=== PATIENT | female | born 1960 | race Caucasian/White ===

== ENCOUNTER 2019-09-10 18:25 | Inpatient (IN) | payer OTHER ==
[~2019-09-10] VITALS: Ht 160 cm; Wt 101.6 kg
[2019-09-10 18:31] VITALS: BP 152/86
[2019-09-10] MEDS ORDERED: OMEPRAZOLE 20 M20 M1 PO (18:42)
[2019-09-10] MEDS ORDERED: AZO PO (18:42)
[2019-09-10] MEDS ORDERED: COZAAR 50 MG TA50 M1 PO (18:42)
[2019-09-10] MEDS ORDERED: SAME200 MG PO (18:42)
[2019-09-10] MEDS ORDERED: ASA81BEC PO (18:42)
[2019-09-10] MEDS ORDERED: METFORMIN HCL500 M3 PO (18:43)
[2019-09-10 18:58] LABS: ABSOLUTE BASOPHILS 0.1 thou/uL (0.0-0.2); ABSOLUTE EOSINOPHILS 0.1 thou/uL (0.0-0.7); ABSOLUTE MONOCYTES 0.4 thou/uL (0.0-1.2); ABSOLUTE NEUTROPHILS 4.9 thou/uL (1.6-8.1); BASOPHILS 1.2 %; EOSINOPHILS 1.2 %; HEMATOCRIT 45.1 % (37.0-47.0); HEMOGLOBIN 14.8 gm/dL (12.0-15.0); LYMPHOCYTES 27.1 %; MCH 25.8 pg (26.0-34.0); MCHC 32.9 g/dL (28.0-37.0); MCV 78.4 fL (80.0-100.0); MONOCYTES 5.9 %; MPV 8.2 fl. (7.2-11.1); NUCLEATED RBCS 0 /100WBC; PLATELET COUNT* 292 thou/uL (150-400); POLYS 64.6 %; RBC 5.75 mil/uL (4.20-5.00); RDW-CV 14.8 % (10.5-14.5); WBC 7.5 thou/uL (4.0-11.0)
[2019-09-10 19:05] LABS: PROTIME 10.4 Seconds (9.20-11.50)
[2019-09-10 19:08] LABS: CALCIUM 9.4 mg/dL (8.5-10.1); CREATININE 0.8 mg/dL (0.6-1.3); POTASSIUM 3.7 mmol/L (3.5-5.1)
[2019-09-10 19:18] LABS: ALBUMIN 3.5 g/dL (3.4-5.0); TOTAL BILIRUBIN 0.5 mg/dL (<0.1-1.0); TOTAL PROTEIN 7.4 g/dL (6.4-8.2)
[2019-09-10 19:29] LABS: URINE BILIRUBIN NEGATIVE (Negative); URINE BLOOD NEGATIVE (Negative); URINE CLARITY CLEAR; URINE COLOR YELLOW; URINE GLUCOSE-RANDOM TRACE (Negative); URINE KETONES NEGATIVE (Negative); URINE LEUKOCYTES-REFLEX TRACE (Negative); URINE NITRITE-REFLEX NEGATIVE (Negative); URINE PROTEIN NEGATIVE (Negative); URINE UROBILINOGEN 0.2 E.U./dl (0.2-1.0)
[2019-09-10 19:57] LABS: BACTERIA-REFLEX None Seen /HPF (None Seen); CASTS None Seen /LPF (None Seen); CRYSTALS None Seen /LPF (None Seen); SQUAMOUS 0-3 Few /LPF (0-3); URINE RBC None Seen /HPF (0-2); URINE WBC-REFLEX 6-15 Few /HPF (0-5)
[2019-09-10 23:10] VITALS: BP 119/65
[2019-09-11 03:56] VITALS: BP 140/67
[2019-09-11 05:25] LABS: CHOLESTEROL 207 mg/dL (<200); HDL CHOLESTEROL 29 mg/dL (>40); LDL CHOLESTEROL 148 mg/dL (<100); TC:HDL 7.1 Ratio (Not establshd); TRIGLYCERIDE 152 mg/dL (<150); VLDL 30 mg/dL (<40)
[2019-09-11 05:39] LABS: SERUM ASSESSMENT Clear
[2019-09-11 08:33] VITALS: BP 170/74
--- NOTE | 2019-09-11 10:21 | EKG ---
[place] [address] ELECTROCARDIOGRAM REPORT Name: ELIDARAMONA D Room: [address] IN ..#: [id number] Admission: 09/10/19 Attend Phys: Donald Hardwick, Discharge: Date of : 56 Date of Service: 09/10/19 1834 Report #: [id number] THIS REPORT FOR: //name// [facility] ED Test Date: 2019-09-10 Test Time: 18:34:02 Pat Name: RAMONA MARRERO Department: Room: [facility] Gender: F Machine Trimmer: : 1960 Requested By: Stephanie Hester Order Number: [id number] MD: José Luis Nicole Measurements Intervals [place] Rate: 102 P: 67 [place]: 165 QRS: -47 QRSD: 92 T: 69 QT: 342 QTc: 446 Interpretive Statements Sinus tachycardia Abnormal R-wave progression, late transition Probable left ventricular hypertrophy Inferior infarct, old No previous ECG available for comparison Electronically Signed On 09-11-2019 10:20:30 AVIONICS INSTALLER by José Luis Nicole [email or web address] <ELECTRONICALLY SIGNED> By: José Luis Nicole MD, [facility] 09/11/19 1020 1834 1834 José Luis Nicole MD, [facility] /EPI
[2019-09-11 12:45] VITALS: BP 148/74
[2019-09-11 16:03] VITALS: BP 146/78
--- NOTE | 2019-09-11 16:08 | NUR ---
PT PROGRESSING WELL TOWARDS GOALS THIS SHIFT. PT AND OT EVALUATED PATIENT. NEUROLOGY CONSULTED. NO OTHER CONCERNS AT THIS TIME. CLWR. WCTM.
[2019-09-11 19:57] VITALS: BP 162/78
[2019-09-12] VITALS: BP 110/57
[2019-09-12 03:10] LABS: GLYCOHEMOGLOBIN (HGB A1C) 14.2 % (4.8-5.6)
[2019-09-12 03:59] VITALS: BP 170/89
[2019-09-12 04:46] LABS: ABSOLUTE EOSINOPHILS 0.2 thou/uL (0.0-0.7); ABSOLUTE LYMPHOCYTES 2.6 thou/uL (0.8-5.3); ABSOLUTE MONOCYTES 0.5 thou/uL (0.0-1.2); ABSOLUTE NEUTROPHILS 3.7 thou/uL (1.6-8.1); BASOPHILS 0.6 %; EOSINOPHILS 2.8 %; HEMATOCRIT 39.6 % (37.0-47.0); LYMPHOCYTES 36.7 %; MCH 25.8 pg (26.0-34.0); MCHC 32.9 g/dL (28.0-37.0); MCV 78.4 fL (80.0-100.0); MONOCYTES 7.5 %; MPV 8.8 fl. (7.2-11.1); NUCLEATED RBCS 0 /100WBC; PLATELET COUNT* 218 thou/uL (150-400); POLYS 52.4 %; RBC 5.05 mil/uL (4.20-5.00); RDW-CV 14.9 % (10.5-14.5)
[2019-09-12 05:20] LABS: CALCIUM 8.4 mg/dL (8.5-10.1); CREATININE 0.6 mg/dL (0.6-1.3); POTASSIUM 3.4 mmol/L (3.5-5.1)
[2019-09-12 07:26] LABS: ESR (SEDRATE) 25 mm/hr (0-30)
[2019-09-12 08:12] VITALS: BP 175/85
[2019-09-12 11:48] VITALS: BP 154/95
[2019-09-12 15:54] VITALS: BP 149/74
--- NOTE | 2019-09-12 16:09 | NUR ---
PT PROGRESSING TOWARDS GOALS THIS SHIFT. VSS. PT HAS NO C/O PAIN. SR ON THE MONITOR. CONTINUE TO MONITOR BLOOD SUGARS AND BLOOD PRESSURES. NO OTHER CONCERNS AT THIS TIME. CLWR. WCTM.
[2019-09-12 20:00] VITALS: BP 163/76
[2019-09-13] VITALS (7 sets, daily range): BP systolic 136–175; BP diastolic 57–78
--- NOTE | 2019-09-13 05:12 | NUR ---
PT SLEPT MOST OF SHIFT. ASSESSMENT DOCUMENTED. MEDS GIVEN PER E-MAR. IV PATENT. TYLENOL GIVEN FOR A HEADACHE WITH RELIEF. INSULIN GIVEN WITH SNACK THIS SHIFT. WILL CONTINUE WITH PLAN OF CARE.
--- NOTE | 2019-09-13 11:29 | NUR ---
MET WITH PT TO DISCUSS HOME SITUATION/DC PLANNING. PT LIVES ALONE, HAS CLOSE NEIGHBOR NEXT DOOR THAT SHE HAS STAYED WITH DURING THIS LAST WEEK. 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 PT USES CPAP, OTHERWISE IS INDEPENDENT AND ACTIVE. PT VOICED CONCERN ABOUT WHETHER/WHEN SHE CAN RETURN TO WORK AND HOW TO MANAGE HER SPECIAL NEEDS KIDS. REPORTS STILL HAVING SOME VISION ISSUES. ASKED ABOUT FMLA, GAVE HER FAX NUMBER TO HAVE PAPERWORK SENT TO FAX ON UNIT FOR DR TO FILL OUT. PT DOES FOLLOW WITH DR WELLS AND HAS BEEN USING [employer] TO GET COUPONS FOR MEDS. SHE HAS BROTHER IN LAW AND BROTHER/CARL WHO ARE SUPPORTIVE AND HELPING THRU THIS ILLNESS ALSO. GAVE PT COMMUNITY RESOURCES AND INFO ON MEDICAID/MEDICARE AND MADE AWARE ABOUT [facility] TO CONTACT HER RE: QUALIFYING FOR ANY ASSISTANCE. WILL FOLLOW
--- NOTE | 2019-09-13 12:37 | NUR ---
Nutrition: Pt admitted with HTN, hyperglycemia. Seen for nsg risk, wt loss and poor appetite. Pt stated she lost 80# over 9 months d/t diet changes and desire to lose wt. She was then weighing 225#. She stated she lost a few pounds this week d/t poor apptite since she wasn't feeling well. She started being hungry again two days ago and she has no concerns over her appetite/intake now. She stated she is going to follow a CHO controlled diet at home. She agreed to DM diet teaching - RD will return and deliver nutrition info to pt this afternoon. No other nutrition interventions needed at this time. Hx, labs, RX noted. Mild risk.
--- NOTE | 2019-09-13 20:12 | NUR ---
I ASSUMED CARE OF THE PATIENT AT 1030. SHE IS ALERT AND ORIENTED X4 AND IS ANXIOUS. BED IS IN THE LOW LOCKED POSITION AND CALL LIGHT IS IN REACH. HOURLY ROUNDING IS COMPLETD AND PATIENT NEEDS ARE MET. PAIN IS DENIED. BLOOD SUGAR WAS CHECKED AND REGULATED WITH INSULIN. WILL CONTINUE TO MONITOR.
[2019-09-14] VITALS: BP 142/70
[2019-09-14 04:00] VITALS: BP 173/76
[2019-09-14 05:19] LABS: ABSOLUTE BASOPHILS 0.1 thou/uL (0.0-0.2); ABSOLUTE EOSINOPHILS 0.2 thou/uL (0.0-0.7); ABSOLUTE LYMPHOCYTES 2.8 thou/uL (0.8-5.3); ABSOLUTE MONOCYTES 0.4 thou/uL (0.0-1.2); ABSOLUTE NEUTROPHILS 3.6 thou/uL (1.6-8.1); BASOPHILS 0.8 %; EOSINOPHILS 2.7 %; HEMATOCRIT 40.5 % (37.0-47.0); HEMOGLOBIN 13.5 gm/dL (12.0-15.0); LYMPHOCYTES 38.9 %; MCH 26.3 pg (26.0-34.0); MCHC 33.2 g/dL (28.0-37.0); MCV 79.1 fL (80.0-100.0); MONOCYTES 6.1 %; MPV 8.5 fl. (7.2-11.1); NUCLEATED RBCS 0 /100WBC; PLATELET COUNT* 241 thou/uL (150-400); POLYS 51.5 %; RBC 5.12 mil/uL (4.20-5.00); RDW-CV 15.1 % (10.5-14.5); WBC 7.1 thou/uL (4.0-11.0)
[2019-09-14 05:39] LABS: ALBUMIN 2.9 g/dL (3.4-5.0); CALCIUM 8.6 mg/dL (8.5-10.1); CREATININE 0.7 mg/dL (0.6-1.3); POTASSIUM 3.6 mmol/L (3.5-5.1); TOTAL BILIRUBIN 0.3 mg/dL (<0.1-1.0); TOTAL PROTEIN 6.3 g/dL (6.4-8.2)
[2019-09-14 08:00] VITALS: BP 155/71
--- NOTE | 2019-09-14 08:06 | NUR ---
PT SLEPT MOST OF SHIFT. ASSESSMENT DOCUMENTED. MEDS GIVEN PER E-MAR. IV PATENT. BIPAP WORN WHILE SLEEPING. WILL CONTINUE WITH PLAN OF CARE.
--- NOTE | 2019-09-14 08:55 | NUR ---
[facility] SCREENED PT, NOT ELIGIBLE FOR MEDICAID
--- NOTE | 2019-09-14 10:45 | CON ---
[address] [address] CONSULTATION Name: RAMONA MARRERO Room: [address] IN .R.#: [id number] Admission: 09/10/19 Attend Phys: Donald Hardwick MD Discharge: Date of : 56 Report #: [id number] THIS REPORT FOR: //name// cc: Beronica Castañeda Maggie M. DO ~ THIS REPORT FOR: //name// CC: Donald Lawson DATE OF SERVICE: 09/13/2019 CARDIOLOGY CONSULTATION PRIMARY CARE PHYSICIAN: Beronica Castañeda DO HISTORY OF PRESENT ILLNESS: The patient is a 58-year-old single white female who I was asked to see in the hospital today because of elevated blood pressure. The patient has a long history of diabetes, hypertension, and hyperlipidemia. She notes a week ago, she went to the Emergency Room at [facility] with elevated blood pressure. She saw Dr. Castañeda on Friday, who recommended she be admitted. The patient denies exertional dyspnea, chest pain, palpitations or recent syncope. She does not exercise on a regular basis. When she came to the Emergency Room, her blood sugar was noted to be elevated. PAST MEDICAL HISTORY: She has had nose surgery, foot surgery, breast reduction, hysterectomy for uterine cancer, hypertension, diabetes, hyperlipidemia. MEDICATIONS: On admission included omeprazole, aspirin, losartan, metformin. ALLERGIES: SHE HAS AN ALLERGY TO CODEINE, MORPHINE, SULFA. FAMILY HISTORY: Her sister had a stroke. SOCIAL HISTORY: She is single, never been , has no children. 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 Lives in [place]. No smoking or alcohol abuse. REVIEW OF SYSTEMS: She has sleep apnea, uses CPAP. She was told in the past that CT scan showed evidence of stroke. No history of asthma, peptic ulcer disease, liver disease, kidney disease. She has a history of depression, saw a psychiatrist in the past. She wears glasses. No chronic skin condition. PHYSICAL EXAMINATION: GENERAL: Revealed a middle-aged overweight female who appeared in no distress. VITAL SIGNS: Currently, her blood pressure is 160/70, pulse 70[place] [address] CONSULTATION Name: ELIDARAMONA Delgado Room: [address]#: [id number] Admission: 09/10/19 Attend Phys: Donald Hardwick MD Discharge: Date of : 56 Report #: [id number] afebrile. HEENT: She was anicteric. Conjunctivae pink. Mucous membranes moist. NECK: Veins nondistended. No carotid bruits. CHEST: Clear to auscultation. CARDIOVASCULAR: Regular rate and rhythm. ABDOMEN: Obese. EXTREMITIES: Had no edema. Dorsalis pedis pulse 2+ bilaterally. SKIN: Warm, dry. NEUROLOGIC: Nonfocal. LYMPH: No adenopathy. MUSCULOSKELETAL: No joint effusion. DIAGNOSTIC DATA: Her ECG showed a sinus rhythm, left axis deviation, poor R-wave progression. Workup so far in the hospital included a CT scan of the head without contrast that showed previous encephalopathy, previous infarction. She had a carotid Doppler, MRA showed no significant stenosis. LABORATORY DATA: Sodium 143, creatinine 0.6, glucose 186. Liver function studies were normal. Troponin 0.06. BNP 223. Cholesterol 207, triglyceride 182, HDL 29, LDL 148. TSH 1.6. Her white blood cell count 7.0, hemoglobin 13.0. IMPRESSION AND RECOMMENDATIONS: 1. Elevated blood pressure. The patient has been on an ARB. I would consider adding a diuretic. 2. Diabetes. The patient is now being placed on insulin. 3. History of uterine cancer. 4. Obesity. 5. Sleep apnea. 6. History of depression. 7. Previous stroke. I would consider an aspirin a day. <ELECTRONICALLY SIGNED> By: Kai Jaime MD, [facility] 09/14/19 1045 1713 [id number] Jaime MD, [facility] /nt
--- NOTE | 2019-09-14 12:09 | NUR ---
ASSUMED CARE OF PT AT 0730. PT RESTING IN BED WAITING FOR BREAKFAST. A&0X4, DENIES ANY PAIN OR SHORTNESS OF BREATH AT THIS TIME. TRACING SR ON THE AUTOMOBILE RENTAL CLERK. ON RA SAT UPPER 90'S. PT USES HOME CPAP AT [facility]. [facility] CHARTED. PT UP AD JAKE IN ROOM. PT GOAL FOR TODAY IS EDUCATION WITH SELF ADMINISTERING INSULIN, WORK WITH PT AND OT AND NEURO CONSULT IN PLACE PENDING DISCHARGE PLANNING TO HOME. AM ASSESSMENT CHARTED. MEDICATIONS PER MAR. PT REPOSITIONS SELF. HOURLY ROUNDING OBSERVED. BED IN LOW POSITION. CALL LIGHT WITHIN REACH. WILL CONTINUE PLAN OF CARE.
[2019-09-14 13:49] VITALS: BP 155/71
--- NOTE | 2019-09-14 14:03 | NUR ---
CONTINUE TO FOLLOW, MET WITH PT AND DISCUSSED WITH DR HAGER. AWAITING REC: RE: LIMITATIONS FROM NEURO, ANTICIPATE DC TOMORROW. PT NOT ELIGIBLE AT THIS TIME FOR MEDICAID, SHE IS AWARE. WILL FOLLOW
[2019-09-14 16:26] VITALS: BP 150/72
--- NOTE | 2019-09-14 16:46 | NUR ---
I have reviewed the documentation by 09/13/19 from to 09/14/19 and I concur with it. MALENA WEBB
--- NOTE | 2019-09-14 18:27 | NUR ---
NO ACUTE CHANGES THROUGHOUT SHIFT. REFER TO CHARTING. PT WORKED WITH PT AND OT TODAY-TOLERATED WELL. PT SHOWERED WITH OCCUPATIONAL THERAPY AND WENT TO THERAPY GYM. PT SAT UP IN THE CHAIR FOR MEALS. PT SELF ADMINISTERED INSULIN FOR ALL MEALS- PT EDUCATIED AND DEMONSTRATED ACCURATELY. CONTINUES TO TRACE SR ON THE DIAMOND CLEAVER. ON RA SAT UPPER 90'S. PT WEARS HOME CPAP AT NOC AND WHILE SLEEPING. PT UP AD JAKE IN ROOM. VISITORS AT BEDSIDE THROUGHOUT AFTERNOON. MEDICATIONS PER SEP. PT REPOSITIONS SELF. HOURLY ROUNDING OBSERVED. BED IN LOW POSITION. CALL LIGHT WITHIN REACH. WILL CONTINUE PLAN OF CARE.
[2019-09-14 20:00] VITALS: BP 170/78
[2019-09-15 00:21] VITALS: BP 120/69
--- NOTE | 2019-09-15 04:21 | NUR ---
ASSUMED PATIENT CARE AT 1900. PATIENT ALERT AND ORIENTED TIMES FOUR. NO COMPLAINTS OF PAIN OR DISCOMFORT NOTED. UP AD JAKE IN ROOM. POWER AND RECOVERY SHIFT ENGINEER AND HOURLY ROUNDING COMPLETED CHARTED.
[2019-09-15 04:33] VITALS: BP 176/83
[2019-09-15 07:15] LABS: ABSOLUTE BASOPHILS 0.1 thou/uL (0.0-0.2); ABSOLUTE EOSINOPHILS 0.2 thou/uL (0.0-0.7); ABSOLUTE LYMPHOCYTES 2.6 thou/uL (0.8-5.3); ABSOLUTE MONOCYTES 0.4 thou/uL (0.0-1.2); ABSOLUTE NEUTROPHILS 2.9 thou/uL (1.6-8.1); HEMATOCRIT 40.4 % (37.0-47.0); HEMOGLOBIN 13.4 gm/dL (12.0-15.0); LYMPHOCYTES 42.3 %; MCH 26.1 pg (26.0-34.0); MCHC 33.3 g/dL (28.0-37.0); MCV 78.3 fL (80.0-100.0); MONOCYTES 6.2 %; MPV 8.4 fl. (7.2-11.1); NUCLEATED RBCS 0 /100WBC; PLATELET COUNT* 206 thou/uL (150-400); POLYS 47.5 %; RBC 5.15 mil/uL (4.20-5.00); RDW-CV 15.2 % (10.5-14.5); WBC 6.1 thou/uL (4.0-11.0)
[2019-09-15 07:25] LABS: ALBUMIN 2.9 g/dL (3.4-5.0); CALCIUM 8.4 mg/dL (8.5-10.1); CREATININE 0.7 mg/dL (0.6-1.3); POTASSIUM 3.9 mmol/L (3.5-5.1); TOTAL BILIRUBIN 0.3 mg/dL (<0.1-1.0); TOTAL PROTEIN 6.2 g/dL (6.4-8.2)
[2019-09-15 07:44] VITALS: BP 141/64
--- NOTE | 2019-09-15 08:57 | NUR ---
I have reviewed the documentation by JER BRAR from 09/13/19 to 09/14/19 and I concur with it. MALENA WEBB
--- NOTE | 2019-09-15 09:00 | NUR ---
ASSUMED CARE OF PT AT 0730. PT RESTING AT EDGE OF BED WAITING FOR BREAKFAST. PT HAD SHOWER THIS AM. STATED SHE DIDNT SLEEP WELL LAST NIGHT. COMPLAINED OF DULL HEADACHE THIS AM- TREATED WITH PRN TYLENOL WITH RELIEF. TRACING SR ON THE MOTOR SCOOTER MECHANIC. ON RA SAT 98%. DENIES ANY SHORTNESS OF BREATH AT THIS TIME. PT UP AD JAKE IN ROOM. NEURO CONSULT IN PLACE. PT GOAL FOR TODAY IS WORK WITH PT AND OT, NEURO CONSULT IN PLACE, COMPLETE ECHO AND DISCHARGE PLANNING TO HOME. AM ASSESSMENT CHARTED. MEDICATIONS PER SEP. PT REPOSITIONS SELF. HOURLY ROUNDING OBSERVED. BED IN LOW POSITION. CALL LIGHT WITHIN REACH. WILL CONTINUE PLAN OF CARE.
[2019-09-15] MEDS ORDERED: CARVEDILOL12.5 MG PO (10:27)
[2019-09-15] MEDS ORDERED: PLAVIX 75 MG TA75 MG PO (10:28)
[2019-09-15] MEDS ORDERED: LIPITOR40 MG PO (10:28)
[2019-09-15] MEDS ORDERED: TYLENOL325 MG PO (10:59)
--- NOTE | 2019-09-15 11:13 | NUR ---
FMLA PAPERWORK GIVEN TO DR TO COMPLETE, UPDATED PT. ANTICIPATE DC TODAY
--- NOTE | 2019-09-15 11:19 | 2DMMODE ---
[place] [address] 2 D/M-MODE ECHOCARDIOGRAM Name: RAMONA MARRERO Room: [address] IN .R.#: [id number] Admission: 09/10/19 Attend Phys: Donald Hardwick, Discharge: Date of : 56 Date of Service: 09/13/19 1624 Report #: [id number] THIS REPORT FOR: cc: Beronica Castañeda Maggie M. DO Blick, David R. MD [facility] ~ APPROVED REPORT Study performed: 09/13/2019 14:53:10 EXAM: Comprehensive 2D, Doppler, and color-flow Echocardiogram Patient Location: In-Patient Room #: [facility] Status: routine BSA: 1.99 HR: 73 bpm BP: 175/76 mmHg Rhythm: NSR Other Information Study Quality: Good Indications CVA/TIA Echo Enhancing Agent Indication: Rule out Shunt Agent(s) / Amount(s) Used: Agitated Saline 10 cc 2D Dimensions IVSd: 16.44 (7-11mm) LVOT Diam: 19.13 (18-24mm) LVDd: 43.73 mm PWd: 13.21 (7-11mm) Ascending Ao: 32.44 (22-36mm) LVDs: 35.23 (25-40mm) Aortic Root: 36.30 mm Volumes Left Atrial Volume (Systole) LA ESV Index: 13.00 mL/m2 Aortic Valve AoV Peak Gabriel.: 1.17 m/s AO Peak Gr.: 5.45 mmHg LVOT Max P.45 mmHg AO Mean Gr.: 3.05 mmHg LVOT Mean P.20 [place] [address] 2 D/M-MODE ECHOCARDIOGRAM Name: RAMONA MARRERO Room: [address] IN ..#: [id number] Admission: 09/10/19 Attend Phys: Donald Hardwick, Discharge: Date of : 56 Date of Service: 09/13/19 1624 Report #: [id number] LVOT Max V: 0.78 m/s AO V2 VTI: 21.67 cm LVOT Mean V: 0.50 m/s DANIEL (VTI): 2.29 cm2 LVOT V1 VTI: 17.27 cm Mitral Valve E/A Ratio: 0.66 MV Decel. Time: 331.51 ms MV E Max Gabriel.: 0.58 m/s MV PHT: 96.14 ms MVA (PHT): 2.29 cm2 TDI E/Lateral E': 11.60 E/Medial E': 6.44 Medial E' Gabriel.: 0.09 m/s Lateral E' Gabriel.: 0.05 m/s Pulmonary Valve PV Peak Gabriel.: 1.05 m/s PV Peak Gr.: 4.37 mmHg Left Ventricle The left ventricle is normal size. There is normal LV segmental wall motion. Mild concentric left ventricular hypertrophy. Left ventricular systolic function is normal. The left ventricular ejection fraction is within the normal range. LVEF is 55-60%. The left ventricular diastolic function is normal. Right Ventricle The right ventricle is normal size. The right ventricular systolic function is normal. Atria The left atrium size is normal. The interatrial septum is intact with no evidence for an atrial septal defect. The right atrium size is normal. Aortic Valve Mild aortic valve sclerosis. No aortic regurgitation is present. There is no aortic valvular stenosis. Mitral Valve The mitral valve is normal in structure. There is no mitral valve regurgitation noted. No evidence of mitral valve stenosis. Tricuspid Valve The tricuspid valve is normal in structure. Trace [place]icus[place] [address] 2 D/M-MODE ECHOCARDIOGRAM Name: RAMONA MARRERO Room: [address] IN [facility]#: [id number] Admission: 09/10/19 Attend Phys: Donald Hardwick, Discharge: Date of : 56 Date of Service: 09/13/19 1624 Report #: [id number] Pulmonic Valve The pulmonary valve is normal in structure. Mild pulmonic regurgitation. Great Vessels The aortic root is normal in size. IVC is normal in size and collapses >50% with inspiration. Pericardium There is no pericardial effusion. <Conclusion> Mild concentric left ventricular hypertrophy. LVEF is 55-60%. The interatrial septum is intact with no evidence for an atrial septal defect. <ELECTRONICALLY SIGNED> By: Kai Jaime MD, FACC 09/13/19 1624 1624 1624 Kai Jaime MD, FACC /INF
[2019-09-15] MEDS ORDERED: METFORMIN HCL500 M1 PO (11:36)
[2019-09-15] MEDS ORDERED: COZAAR100 MG PO (11:38)
[2019-09-15 12:29] VITALS: BP 158/65
--- NOTE | 2019-09-15 14:39 | NUR ---
DISCHARGE ORDERS RECEIVED. DISCHARGE INSTRUCTIONS, CARE NOTES, SCRIPTS AND FOLLOW UP APPTS GIVEN TO PT. PT COMMUNICATES UNDERSTANDING OF DISCHARGE TEACHING. IV AND INDUSTRIAL ENGINEERING INTERN REMOVED. BATTERY SERVICE TECHNICIAN PLACED EVENT MONITOR ON PT. HOME MEDICATIONS OBTAINED FROM PHARMACY AND GIVEN TO PT. PT DISCHARGED WITH ALL BELONGINGS AND PAPERWORK VIA WHEELCHAIR WITH [employer] TO FAMILY OWN PERSONAL VEHICLE.
== END 2019-09-15 14:40 | disposition home or self-care (01) | DRG 64 ==
LOC: M.ERS 18:25 → M.2W 22:06 → M.TBA-ER 22:06 → M.2W 23:57
PROVIDERS: Emergency Medicine; Internal Medicine; Psychiatry & Neurology Neurology; ADMIT Internal Medicine
PROC: 5A09357 Assistance with Respiratory Ventilation, Less than 24 Consecutive Hours, Continuous Positive Airway Pressure (ICD-10-PCS; principal; 2019-09-11)
DX: I63.511 Cerebral infarction due to unspecified occlusion or stenosis of right middle cerebral artery (principal); I67.83 Posterior reversible encephalopathy syndrome; I10 Essential (primary) hypertension; G43.909 Migraine, unspecified, not intractable, without status migrainosus; E78.5 Hyperlipidemia, unspecified; K21.9 Gastro-esophageal reflux disease without esophagitis; F32.9 Major depressive disorder, single episode, unspecified; J45.909 Unspecified asthma, uncomplicated; E11.65 Type 2 diabetes mellitus with hyperglycemia; E66.9 Obesity, unspecified; G47.30 Sleep apnea, unspecified; H05.20 Unspecified exophthalmos; F41.9 Anxiety disorder, unspecified; R27.0 Ataxia, unspecified; Z90.710 Acquired absence of both cervix and uterus; Z92.3 Personal history of irradiation; Z79.899 Other long term (current) drug therapy; Z79.82 Long term (current) use of aspirin; Z79.84 Long term (current) use of oral hypoglycemic drugs; Z88.6 Allergy status to analgesic agent; Z88.8 Allergy status to other drugs, medicaments and biological substances; Z88.2 Allergy status to sulfonamides; Z91.018 Allergy to other foods; Z91.048 Other nonmedicinal substance allergy status; Z85.41 Personal history of malignant neoplasm of cervix uteri; Z82.3 Family history of stroke; Z68.39 Body mass index [BMI] 39.0-39.9, adult; Z86.73 Personal history of transient ischemic attack (TIA), and cerebral infarction without residual deficits; Z23 Encounter for immunization

== ENCOUNTER → 2019-11-17 | Outpatient (CLI) | payer OTHER ==
[~2019-11-17] MED LIST: ASA81BEC PO; AZO PO; CARVEDILOL12.5 MG PO; COZAAR 50 MG TA50 M1 PO; COZAAR100 MG PO; LIPITOR40 MG PO; METFORMIN HCL500 M1 PO; METFORMIN HCL500 M3 PO; OMEPRAZOLE 20 M20 M1 PO; PLAVIX 75 MG TA75 MG PO; SAME200 MG PO; TYLENOL325 MG PO
== END ==
LOC: M.ULTRA 10:36
DX: I63.9 Cerebral infarction, unspecified (principal); E78.5 Hyperlipidemia, unspecified

== ENCOUNTER 2020-03-17 17:21 | Emergency (ER) | payer OTHER ==
[~2020-03-17] VITALS: Ht 160 cm; Wt 99.8 kg
[2020-03-17] MEDS ORDERED: LEXAPRO 10 MG T10 M2 PO (17:36)
[2020-03-17] MEDS ORDERED: NORVASC 2.5 MG2.5 M1 PO (17:37)
[2020-03-17] MEDS ORDERED: JANUMET XR 1001 EACH PO (17:37)
[2020-03-17] MEDS ORDERED: CARVEDILOL12.5 MG PO (17:37)
[2020-03-17] MEDS ORDERED: LIPITOR40 MG PO (17:37)
[2020-03-17] MEDS ORDERED: HYDROCHLOROTHIA25 M2 PO (17:38)
[2020-03-17 17:54] LABS: ABSOLUTE BASOPHILS 0.1 thou/uL (0.0-0.2); ABSOLUTE LYMPHOCYTES 0.7 thou/uL (0.8-5.3); ABSOLUTE MONOCYTES 0.6 thou/uL (0.0-1.2); ABSOLUTE NEUTROPHILS 7.9 thou/uL (1.6-8.1); BASOPHILS 0.7 %; EOSINOPHILS 0.1 %; HEMATOCRIT 36.4 % (37.0-47.0); HEMOGLOBIN 12.3 gm/dL (12.0-15.0); LYMPHOCYTES 7.6 %; MCH 27.1 pg (26.0-34.0); MCHC 33.7 g/dL (28.0-37.0); MCV 80.5 fL (80.0-100.0); MONOCYTES 6.6 %; MPV 8.1 fl. (7.2-11.1); NUCLEATED RBCS 0 /100WBC; PLATELET COUNT* 210 thou/uL (150-400); RBC 4.52 mil/uL (4.20-5.00); RDW-CV 15.1 % (10.5-14.5); WBC 9.3 thou/uL (4.0-11.0)
[2020-03-17 18:05] LABS: CALCIUM 7.9 mg/dL (8.5-10.1); CREATININE 1.7 mg/dL (0.6-1.3); POTASSIUM 3.4 mmol/L (3.5-5.1)
[2020-03-17 18:10] LABS: ALBUMIN 2.5 g/dL (3.4-5.0); TOTAL PROTEIN 6.8 g/dL (6.4-8.2)
[2020-03-17] MEDS ORDERED: CEFDINIR300 MG PO (18:23)
[2020-03-17] MEDS ORDERED: ONDANSETRON HCL4 M2 PO (18:23)
[2020-03-17] MEDS ORDERED: MACROBID 100 M100 M2 PO (20:14)
[2020-03-17 20:46] LABS: URINE BLOOD NEGATIVE (Negative); URINE GLUCOSE-RANDOM NEGATIVE (Negative); URINE KETONES NEGATIVE (Negative); URINE LEUKOCYTES-REFLEX TRACE (Negative); URINE NITRITE-REFLEX NEGATIVE (Negative); URINE PROTEIN 2+ (Negative); URINE SPECIFIC GRAVITY >= 1.030 (1.005-1.030)
[2020-03-17 20:47] LABS: ICTOTEST (BILI CONFIRMATORY) Negative (Negative); URINE BILIRUBIN 1+ (Negative); URINE CLARITY CLOUDY
[2020-03-17 20:48] LABS: URINE COLOR YELLOW
[2020-03-17 20:50] LABS: SQUAMOUS >10 Many /LPF (0-3)
[2020-03-17 20:51] LABS: BACTERIA-REFLEX 1-9 Few /HPF (None Seen); CRYSTALS None Seen /LPF (None Seen); HYALINE CASTS 0-3 Few /LPF (None Seen); URINE RBC None Seen /HPF (0-2); URINE WBC-REFLEX 6-15 Few /HPF (0-5)
[2020-03-17 21:26] VITALS: BP 121/65
== END 2020-03-17 21:27 | disposition home or self-care (01) ==
LOC: M.ERS 17:21
PROVIDERS: Nurse Practitioner Family
DX: N39.0 Urinary tract infection, site not specified (principal); E86.0 Dehydration; R11.2 Nausea with vomiting, unspecified; G43.909 Migraine, unspecified, not intractable, without status migrainosus; E78.5 Hyperlipidemia, unspecified; K21.9 Gastro-esophageal reflux disease without esophagitis; J45.909 Unspecified asthma, uncomplicated; Z88.5 Allergy status to narcotic agent; Z88.1 Allergy status to other antibiotic agents; Z88.8 Allergy status to other drugs, medicaments and biological substances; Z79.899 Other long term (current) drug therapy; Z79.82 Long term (current) use of aspirin

== ENCOUNTER → 2020-12-01 | Outpatient (CLI) | payer OTHER ==
[~2020-12-01] MED LIST changes: +CEFDINIR300 MG PO; +HYDROCHLOROTHIA25 M2 PO; +JANUMET XR 1001 EACH PO; +LEXAPRO 10 MG T10 M2 PO; +MACROBID 100 M100 M2 PO; +NORVASC 2.5 MG2.5 M1 PO; +ONDANSETRON HCL4 M2 PO
== END ==
LOC: M.CT 11-17 08:15
PROVIDERS: ATTEND Internal Medicine Cardiovascular Disease
DX: Z13.6 Encounter for screening for cardiovascular disorders (principal)